=== PATIENT | male | born 1975 | race Caucasian/White ===

== ENCOUNTER 2020-06-06 01:10 | Emergency (ER) | payer OTHER, SELFPAY ==
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
[2020-06-06 01:25] VITALS: BP 144/91; BP 150/100; PULSE 111; PULSE 120; RESP 18; TEMP 36.6; O2SAT 99; BMI 33.4
== END 2020-06-06 02:50 | disposition home or self-care (01) ==
LOC: HO.ED 02:05
PROVIDERS: Emergency Provider Emergency Medicine
DX: S19.9XXA Unspecified injury of neck, initial encounter (principal); M54.2 Cervicalgia; V43.52XA Car driver injured in collision with other type car in traffic accident, initial encounter; Y93.9 Activity, unspecified; Y92.410 Unspecified street and highway as the place of occurrence of the external cause; Y99.9 Unspecified external cause status
CPT/HCPCS: 72125; 99283